=== PATIENT | male | born 1965 | race Asian ===

== ENCOUNTER 2023-09-12 19:28 | Emergency (ER) | payer OTHER ==
[~2023-09-12] VITALS: Ht 172.7 cm; Wt 74.8 kg
[2023-09-12 20:01] VITALS: BP_SYST 127; PULSE 80; RESP 18; TEMP 96.9; O2SAT 97
[2023-09-12 20:39] LABS: INFLUENZA TYPE A Negative (NEGATIVE); INFLUENZA TYPE B NEGATIVE (NEGATIVE)
[2023-09-12] MEDS ORDERED: AMOX500C2 PO (22:04)
[2023-09-12 22:05] LABS: EOSINOPHILS # (AUTO) 0.5 K/uL (0.0-0.4); EOSINOPHILS % (AUTO) 10.2 % (0.0-4.0); HEMOGLOBIN 16.2 g/dL (14.0-18.0); LYMPHOCYTES % (AUTO) 41.1 % (20.5-51.5); MEAN CORPUSCULAR HEMOGLOBIN 30 pg (27-31); MEAN CORPUSCULAR HGB CONC 34 % (32-36); MEAN CORPUSCULAR VOLUME 87 fL (79.0-98.0); MONOCYTES # (AUTO) 0.5 K/uL (0.0-1.0); MONOCYTES % (AUTO) 9.3 % (1.7-9.3); NEUTROPHILS # (AUTO) 1.9 K/uL (1.8-7.7); NEUTROPHILS % (AUTO) 38.4 % (40.0-70.0); PLATELET COUNT (AUTO) 198 K/uL (130-430); RED BLOOD CELL COUNT(AUTO) 5.38 MIL/uL (4.2-6.2)
[2023-09-12 23:22] LABS: ANION GAP 9 (5-15); CALCIUM 8.8 mg/dL (8.4-11.0); CARBON DIOXIDE 29 mmol/L (23-29); CHLORIDE 104 mmol/L (98-107); CREATININE 0.86 mg/dL (0.55-1.30); GFR AFRICAN AMERICAN 117 mL/min (>90); GFR NON AFRICAN-AMERICAN 97 mL/min (>90); GLUCOSE 109 mg/dL (74-106); POTASSIUM 4.1 mmol/L (3.5-5.1); SODIUM SERUM 142 mmol/L (136-145); UREA NITROGEN, BLOOD 12 mg/dL (8-21)
[2023-09-13] MEDS ORDERED: PRED20TA PO (00:34)
[2023-09-13] MEDS ORDERED: ALBMDI INH (00:34)
[2023-09-13] MEDS: predniSONE 20 MG TABLET PO ONE (00:48)
[2023-09-13 00:53] VITALS: BP_SYST 108; PULSE 70; RESP 16; TEMP 96.1; O2SAT 96
== END 2023-09-13 00:50 | disposition home or self-care (01) ==
LOC: SED 19:28
DX: J06.9 Acute upper respiratory infection, unspecified (principal); R06.00 Dyspnea, unspecified; R05.9 Cough, unspecified; Z79.899 Other long term (current) drug therapy; Z20.822 Contact with and (suspected) exposure to COVID-19
CPT/HCPCS: 99285; 71045; 87426; 80048; 85025; 84484; 36415; 93005; 87804 ×2; J7512